=== PATIENT | female | born 1985 | race Caucasian/White ===

== ENCOUNTER 2018-07-09 10:05 | Emergency (ER) | payer OTHER ==
[~2018-07-09] VITALS: Ht 157.5 cm; Wt 53.1 kg
[2018-07-09] MEDS ORDERED: SYNTHROID125 MCG (10:30)
== END 2018-07-09 12:37 | disposition home or self-care (01) ==
LOC: ER 10:05
DX: S70.372A Other superficial bite of left thigh, initial encounter (principal); W54.0XXA Bitten by dog, initial encounter; Y93.89 Activity, other specified; Y92.89 Other specified places as the place of occurrence of the external cause; Y99.8 Other external cause status

== ENCOUNTER 2019-06-22 12:24 | Outpatient (CLI) | payer OTHER ==
[~2019-06-22] VITALS: Ht 157.5 cm; Wt 50.8 kg
[~2019-06-22 12:24] MED LIST: SYNTHROID125 MCG
== END 2019-06-22 16:15 | disposition home or self-care (01) ==
LOC: OFIC 805 12:24
DX: R09.81 Nasal congestion (principal); H69.82 Other specified disorders of Eustachian tube, left ear; H91.8X2 Other specified hearing loss, left ear; J32.8 Other chronic sinusitis

== ENCOUNTER 2021-03-12 08:35 | Outpatient (CLI) | payer BC | END 2021-03-12 08:50 | disposition home or self-care (01) | LOC: SONOGRAMA 08:35 | PROVIDERS: ATTEND Family Medicine | DX: S93.402A Sprain of unspecified ligament of left ankle, initial encounter (principal) ==

== ENCOUNTER 2022-04-04 10:40 | Outpatient (CLI) | payer OTHER | END 2022-04-04 10:59 | disposition home or self-care (01) | LOC: SONOGRAMA 10:40 | PROVIDERS: ATTEND Obstetrics & Gynecology | DX: N63.12 Unspecified lump in the right breast, upper inner quadrant (principal); N63.21 Unspecified lump in the left breast, upper outer quadrant ==